=== PATIENT | male | born 1960 | race Caucasian/White ===

== ENCOUNTER 2020-06-13 11:00 | Observation (INO) ==
--- NOTE | 2020-06-13 11:36 | DR.GENAD ---
HPI Time Seen Time Seen by Provider: 06/13/20 11:08 Complaint/Symptoms Chief Complaint Doctors Comments: complaint of lower leg weakness and numbness. Saw neurologist in [facility] and scheduled for follow up next week. Patient with HX of alcohol abuse. Patient here due to not being able to walk. Source History Provided: Patient and Family Member Mode of Arrival Mode of Arrival: Wheelchair Timing Onset of Chief Complaint: 06/06/20 Came on: Gradually Duration Duration: Constant (leg pain x years and progressed to numbness and weakness) How lon Duration: Days Severity Severity: Severe Modifying Factors Worsens:: unknown PMH PMH Past Medical History Comment: alcohol abuse long HX. Social History Alcohol Use: DAILY Do you use any recreational Drugs:: No Lives With: Alone Lives Where: Home ROS Review of Systems Constitutional: Weakness Eyes: No Symptoms Reported ENTM: No Symptoms Reported Respiratoy: No Symptoms Reported Cardiovascular: No Symptoms Reported Genitourinary: No Symptoms Reported Neurological: Numbness (both legs) Musculoskeletal: Leg (pain) Integumentary: No Symptoms Reported Hematologic/Lymphatic: No Symptoms Reported Endocrine: No Symptoms Reported Psychiatric: Depression All Other Systems: Reviewed and Negative PE Vital Signs Vitals: Temperature 97.2 F Pulse Rate 81 Respiratory Rate 33 Blood Pressure 147/95 O2 Sat by Pulse Oximetry 97 COURSE Treatment Treatment: 1130: called Dr. Brian and discussed case, patient has DX. Alcoholic ataxia, 1140: called Dr. Murillo and he has had MRI and CT scan with (mild vascular changes) No acute findings ROR Labs Reviewed Result Diagrams: 06/13/20 12:08 06/13/20 12:08 Laboratory: WBC 18.9 X10^3/uL (3.6-10.0) H 06/13/20 12:08 RBC 4.77 X10^6/uL (4.7-6.0) 06/13/20 12:08 Hgb 15.2 g/dL (13.5-18.0) 06/13/20 12:08 Hct 44.9 % (42.0-54.0) 06/13/20 12:08 MCV 94.1 fL (80.0-100.0) 06/13/20 12:08 MCH 31.9 pg (27.0-34.0) 06/13/20 12:08 MCHC 33.9 g/dL (33.0-35.0) 06/13/20 12:08 RDW 14.5 % (11.6-16.5) 06/13/20 12:08 Plt Count 478 X10^3/uL (150.0-450.0) H 06/13/20 12:08 MPV 7.3 fL (7.4-11.0) L 06/13/20 12:08 Neut % (Auto) 88.6 % (42.0-75.0) H 06/13/20 12:08 Lymph % (Auto) 5.3 % (21.0-51.0) L 06/13/20 12:08 [place] % (Auto) 5.9 % (0.0-13.0) 06/13/20 12:08 Eos % (Auto) 0.0 % (0.9-2.9) L 06/13/20 12:08 Baso % (Auto) 0.2 % (0.2-1.0) 06/13/20 12:08 Neut # (Auto) 16.8 x10^3/uL (2.2-4.8) H 06/13/20 12:08 Lymph # (Auto) 1.0 X10^3/uL (1.3-2.9) L 06/13/20 12:08 [place] # (Auto) 1.1 x10^3/uL (0.3-0.8) H 06/13/20 12:08 Eos # (Auto) 0.0 x10^3/uL (0.0-0.2) 06/13/20 12:08 Baso # (Auto) 0.0 X10^3/uL (0.0-0.1) 06/13/20 12:08 Absolute Nucleated RBC 0.0 /100WBC 06/13/20 12:08 Sodium 136 mmol/L (136-145) 06/13/20 12:08 Corrected Sodium 137 mmol/L (136-145) 06/13/20 12:08 Potassium 4.0 mmol/L (3.5-5.1) 06/13/20 12:08 Chloride 102 mmol/L (98-107) 06/13/20 12:08 Carbon Dioxide 26.5 mmol/L (21-32) 06/13/20 12:08 BUN 28 mg/dL (7-18) H 06/13/20 12:08 Creatinine 1.06 mg/dL (0.70-1.30) 06/13/20 12:08 Est GFR (MDRD) Af Amer > 60 (>60) 06/13/20 12:08 Est GFR (MDRD) Non-Af > 60 (>60) 06/13/20 12:08 Glucose 129 mg/dL (65-99) H 06/13/20 12:08 Calcium 9.1 mg/dL (8.5-10.1) 06/13/20 12:08 Corrected Calcium 9.7 mg/dL (8.5-10.1) 06/13/20 12:08 Iron 106 ug/dL (50-175) 06/13/20 12:08 Transferrin 203 mg/dL (202-364) 06/13/20 12:08 Ferritin 450 ng/mL (26-388) H 06/13/20 12:08 Total Bilirubin 0.40 mg/dL (0.2-1.0) 06/13/20 12:08 AST 14 Units/L (15-37) L 06/13/20 12:08 ALT 39 Units/L (12-78) 06/13/20 12:08 Alkaline Phosphatase 60 Units/L (46-116) 06/13/20 12:08 Creatine Kinase 18 Units/L (39-308) L 06/13/20 12:08 CK-MB (CK-2) < 1.0 ng/mL (0-4.0) 06/13/20 12:08 CK/CKMB % Calc Not Reportable 06/13/20 12:08 Troponin I < 0.02 ng/mL (0-1.5) 06/13/20 12:08 C-Reactive Protein 1.40 mg/L (0-3.0) 06/13/20 12:08 Total Protein 7.7 g/dL (6.4-8.2) 06/13/20 12:08 Albumin 3.2 g/dL (3.4-5.0) L 06/13/20 12:08 Globulin 4.5 g/dL (2.5-4.5) 06/13/20 12:08 Albumin/Globulin Ratio 0.7 Ratio (1.1-2.1) L 06/13/20 12:08 Vitamin B12 704 pg/mL (193-986) 06/13/20 12:08 Vitamin B12 747 pg/mL (193-986) 06/13/20 12:08 Folate 3.3 ng/mL (>8.6) L 06/13/20 12:08 TSH 3rd Generation 2.647 uIU/mL (0.358-3.74) 06/13/20 12:08 RPR Nonreactive (NONREACTIVE) 06/13/20 12:08 Opioid Opioid Risk Tool Total: 0 Total Score Risk Category: Low Risk Copyright: Thanh GILBERT predicting aberrant behaviors Diagnosis Discharge Problem: Ataxia
[2020-06-13 12:50] LABS: BASOPHILS % (AUTO) 0.2 % (0.2-1.0); HEMATOCRIT 44.9 % (42.0-54.0); HEMOGLOBIN 15.2 g/dL (13.5-18.0); LYMPHOCYTES % (AUTO) 5.3 % (21.0-51.0); MEAN CORPUSCULAR HEMOGLOBIN 31.9 pg (27.0-34.0); MEAN CORPUSCULAR HGB CONC 33.9 g/dL (33.0-35.0); MEAN CORPUSCULAR VOLUME 94.1 fL (80.0-100.0); MEAN PLATELET VOLUME 7.3 fL (7.4-11.0); MONOCYTES # (AUTO) 1.1 x10^3/uL (0.3-0.8); MONOCYTES % (AUTO) 5.9 % (0.0-13.0); NEUTROPHILS # (AUTO) 16.8 x10^3/uL (2.2-4.8); NEUTROPHILS % (AUTO) 88.6 % (42.0-75.0); PLATELET COUNT 478 X10^3/uL (150.0-450.0); RED BLOOD COUNT 4.77 X10^6/uL (4.7-6.0); RED CELL DISTRIBUTION WIDTH 14.5 % (11.6-16.5); WHITE BLOOD COUNT 18.9 X10^3/uL (3.6-10.0)
[2020-06-13 13:03] LABS: ALANINE AMINOTRANSFERASE 39 Units/L (12-78); ALBUMIN 3.2 g/dL (3.4-5.0); ALKALINE PHOSPHATASE 60 Units/L (46-116); ASPARTATE AMINO TRANSFERASE 14 Units/L (15-37); BLOOD UREA NITROGEN 28 mg/dL (7-18); CALCIUM 9.1 mg/dL (8.5-10.1); CARBON DIOXIDE 26.5 mmol/L (21-32); CHLORIDE 102 mmol/L (98-107); COR CA(FOR HYPOALB) 9.7 mg/dL (8.5-10.1); COR NA(FOR HYPERGLY) 137 mmol/L (136-145); CREATININE 1.06 mg/dL (0.70-1.30); SODIUM 136 mmol/L (136-145); TOTAL PROTEIN 7.7 g/dL (6.4-8.2); eGFR NON BLACK RACES > 60 (>60)
[2020-06-13 13:07] LABS: TSH (3RD GENERATION) 2.647 uIU/mL (0.358-3.74)
--- NOTE | 2020-06-13 13:34 | RAD ---
HISTORYPT C/O WEAKNESSSTUDYCHEST, 1 VIEWCOMPARISONNoneFINDINGSHeart size and pulmonary vasculature are normal. Lungs are clear with no infiltrate or significant effusion on either side. Bony thorax is unremarkable.IMPRESSIONNo acute cardiopulmonary abnormality is seen on this examElectronically signed by: MINA HIGUERA (Jun 13, 2020 13:32:53)
[2020-06-13] MEDS ORDERED: VITAMIN B-12 PO SCH (14:00)
[2020-06-13] MEDS ORDERED: NORMODYNE INJ 20 MG VIAL IVP ONE (14:32)
[2020-06-13] MEDS ORDERED: NORMODYNE INJ 20 MG VIAL ONE (14:33)
[2020-06-13 16:36] LABS: CREATINE KINASE 18 Units/L (39-308); CREATINE KINASE MB < 1.0 ng/mL (0-4.0); TROPONIN I < 0.02 ng/mL (0-1.5)
--- NOTE | 2020-06-13 18:27 | CT ---
HISTORYAtaxiaSTUDYCT brain without [id number] axial images of the brain were obtained from the skull base to the vertex [without] administration of IV contrast.Dose reduction techniques including Automated Exposure Control (AEC) and adjustment of mA and kV were utlized.FINDINGS[No acute intraparenchymal hemorrhage or mass can be identified.] [No extra-axial fluid collections are seen.] [No alteration in the attenuation of the brain parenchyma can be identified to suggest acute or subacute ischemic change.] Mild cortical atrophy and small vessel ischemic changes are noted. [The ventricular system is symmetric and nondilated.] [The extracranial structures are grossly unremarkable.]IMPRESSION[No acute intracranial process can be identified.]Electronically signed by: DAMION MONTANO (Jun 13, 2020 18:26:13)
[2020-06-13] MEDS ORDERED: NORVASC TAB 10 MG ONE (20:17)
[2020-06-13] MEDS ORDERED: LOPRESSOR TAB 25 MG ONE (20:17)
[2020-06-13] MEDS: LOPRESSOR TAB 25 MG PO SCH (20:23)
[2020-06-13] MEDS: NORVASC TAB 10 MG PO SCH (20:23)
[2020-06-13 21:12] LABS: CKMB % 5.9 % (<4); CREATINE KINASE 17 Units/L (39-308); CREATINE KINASE MB < 1.0 ng/mL (0-4.0); TROPONIN I < 0.02 ng/mL (0-1.5)
[2020-06-13] MEDS: NEURONTIN CAP 300 MG PO SCH (22:21)
[2020-06-14 00:54] LABS: CKMB % 6.3 % (<4); CREATINE KINASE 16 Units/L (39-308); CREATINE KINASE MB < 1.0 ng/mL (0-4.0); TROPONIN I < 0.02 ng/mL (0-1.5)
[2020-06-14] MEDS ORDERED: TYLENOL 500 MG TAB EXTRA STRENGTH PO ONE (01:42)
[2020-06-14] MEDS: TYLENOL 500 MG TAB EXTRA STRENGTH PO PRN ×2 (01:46→16:13)
[2020-06-14 01:55] LABS: BILIRUBIN,URINE NEGATIVE (NEGATIVE); BLOOD/HEMOGLOBIN,URINE 1+ (NEGATIVE); GLUCOSE, URINE 1+ (NEGATIVE); KETONES,URINE NEGATIVE (NEGATIVE); LEUKOCYTE ESTERASE ,URINE 1+ (NEGATIVE); NITRITES,URINE NEGATIVE (NEGATIVE); PROTEIN,URINE NEGATIVE (NEGATIVE); UROBILINOGEN,URINE NORMAL (NORMAL)
[2020-06-14 02:04] LABS: APPEARANCE,URINE CLEAR (CLEAR); BACTERIA,URINE NEGATIVE /HPF (NEGATIVE); CALCIUM OXALATE CRYSTALS,UR NUMEROUS /HPF (NEGATIVE); COLOR,URINE YELLOW (YELLOW); RBC,URINE NONE SEEN /HPF (0-3); SQUAMOUS EPITHELIAL CELL,UR RARE /HPF (NEGATIVE)
[2020-06-14] MEDS ORDERED: KAOPECTATE (NEW FORMULA) PO PRN (02:32)
[2020-06-14] MEDS ORDERED: MILK OF MAGNESIA PO PRN (02:32)
[2020-06-14] MEDS ORDERED: MAALOX or MYLANTA PO PRN (02:32)
[2020-06-14] MEDS ORDERED: PHENOBARBITAL SODIUM INJ 65 MG VIAL IM PRN (02:32)
[2020-06-14] MEDS ORDERED: MOTRIN TAB 800 MG PO PRN (02:32)
[2020-06-14] MEDS ORDERED: LIBRIUM PO ONE (02:42)
[2020-06-14] MEDS: LIBRIUM PO PRN ×2 (02:53→23:16)
[2020-06-14] MEDS ORDERED: PHENOBARBITAL TAB 15 MG (16.2MG) PO SCH (03:00)
[2020-06-14] MEDS ORDERED: NS 250 ML IV 250 ML IV ONE (05:17)
[2020-06-14] MEDS: MAGNESIUM SULFATE 1 GRAM/100 mL PREMIX 1 G/100 ML BAG IV SCH ×3 (05:36→21:52)
[2020-06-14 06:07] LABS: ALANINE AMINOTRANSFERASE 39 Units/L (12-78); ALBUMIN 3.1 g/dL (3.4-5.0); ALKALINE PHOSPHATASE 84 Units/L (46-116); ASPARTATE AMINO TRANSFERASE 13 Units/L (15-37); BLOOD UREA NITROGEN 31 mg/dL (7-18); CALCIUM 8.5 mg/dL (8.5-10.1); CARBON DIOXIDE 26.9 mmol/L (21-32); CHLORIDE 105 mmol/L (98-107); CHOL/HDL RATIO 6.5 (0.0-5.0); CHOLESTEROL 202 mg/dL (0-200); COR CA(FOR HYPOALB) 9.2 mg/dL (8.5-10.1); CREATININE 0.83 mg/dL (0.70-1.30); HDL CHOLESTEROL 31 mg/dL (40-60); SODIUM 140 mmol/L (136-145); TOTAL PROTEIN 7.4 g/dL (6.4-8.2); TRIGLYCERIDES 84 mg/dL (0-150); eGFR NON BLACK RACES > 60 (>60)
[2020-06-14 06:24] LABS: BASOPHILS # (AUTO) 0.1 X10^3/uL (0.0-0.1); BASOPHILS % (AUTO) 0.4 % (0.2-1.0); EOSINOPHILS % (AUTO) 0.2 % (0.9-2.9); HEMATOCRIT 43.6 % (42.0-54.0); HEMOGLOBIN 14.7 g/dL (13.5-18.0); LYMPHOCYTES # (AUTO) 1.8 X10^3/uL (1.3-2.9); LYMPHOCYTES % (AUTO) 8.5 % (21.0-51.0); MEAN CORPUSCULAR HEMOGLOBIN 32.1 pg (27.0-34.0); MEAN CORPUSCULAR HGB CONC 33.7 g/dL (33.0-35.0); MEAN CORPUSCULAR VOLUME 95.4 fL (80.0-100.0); MEAN PLATELET VOLUME 7.8 fL (7.4-11.0); MONOCYTES # (AUTO) 1.7 x10^3/uL (0.3-0.8); MONOCYTES % (AUTO) 8.1 % (0.0-13.0); NEUTROPHILS # (AUTO) 17.8 x10^3/uL (2.2-4.8); NEUTROPHILS % (AUTO) 82.8 % (42.0-75.0); PLATELET COUNT 451 X10^3/uL (150.0-450.0); RED BLOOD COUNT 4.57 X10^6/uL (4.7-6.0); RED CELL DISTRIBUTION WIDTH 14.5 % (11.6-16.5); WHITE BLOOD COUNT 21.4 X10^3/uL (3.6-10.0)
[2020-06-14 06:54] LABS: BAND NEUTROPHILS % 3 % (0-10); PLATELET MORPHOLOGY COMMENT NORMAL (NORMAL)
[2020-06-14 08:01] LABS: CRYPTOSPORIDIUM PARVUM ANTIGEN NEGATIVE (NEGATIVE); GIARDIA LAMBLIA ANTIGEN NEGATIVE (NEGATIVE)
[2020-06-14] MEDS ORDERED: THIAMINE HCL INJ IM SCH (09:00)
[2020-06-14] MEDS: COZAAR PO SCH (09:30)
[2020-06-14] MEDS: PHENOBARBITAL TAB 30 MG (32.4MG) PO SCH ×4 (09:30→20:31)
[2020-06-14] MEDS: NEURONTIN CAP 300 MG PO SCH ×2 (09:30→20:31)
[2020-06-14] MEDS: LOPRESSOR TAB 25 MG PO SCH ×2 (09:30→20:30)
[2020-06-14] MEDS: THIAMINE HCL INJ IM SCH (09:30)
[2020-06-14] MEDS: FORTAZ or TAZICEF VIAL INJ 1 G in NS 100 ML IV + SPIKE MINIBAG* 100 ML IV SCH ×3 (11:00→21:25)
--- NOTE | 2020-06-14 12:03 | DR.H&P ---
H&P - History & Physical for Day of: H&P Date: 06/13/20 - Chief Complaint Chief Complaint: LOWER EXTREMITY WEAKNESS, NUMBNESS, TINGLING, INABILITY TO STAND OR WALK - History of Present Illness History of Present Illness: IS A 59 YEAR OLD PATIENT OF OURS WHO PRESENTED TO THE ER WITH COMPLAINTS OF LOWER LEG WEAKNESS AND NUMBNESS. HE WAS RECENTLY HOSPITALIZED AT [facility] FOR SIMILAR SYMPTOMS. HE REPORTS THAT HE WAS ABLE TO WALK UPON DISCHARGE FROM [facility], HOWEVER, HE HAS NOT BEEN ABLE TO WALK OR STAND. HE ALSO REPORTS NUMBNESS AND TINGLING TO THE LOWER EXTREMITIES. INABILITY TO WALK OR STAND STARTED THE MORNING OF PRESENTING TO THE ER, HOWEVER, WEAKNESS AND NUMBNESS STARTED ON 06/06/20. PATIENT DOES HAVE A LONG HISTORY OF ALCOHOL ABUSE, BUT REPORTS THAT HE HAS NOT HAD A DRINK IN THREE WEEKS. A BRAIN CT WAS OBTAINED ON 06/04/20 AND REVEALED: MILD ATROPHY AND MILD CHRONIC MICROISCHEMIC CHANGES SCATTERED IN THE DEEP WHITE MATTER WITH NO ACUTE ABNORMALITY SEEN. A BRAIN MRI WAS OBTAINED AND REVEALED: LIKELY MILD CHRONIC SMALL VESSEL ISCHEMIC CHANGES ARE SEEN WITHOUT EVIDENCE OF ACUTE ABNORMALITY. A SINUS CT WAS OBTAINED AND REVEALED: MILD CHRNONIC ETHMOID AND MAXILLARY SINUSITIS, MILD NASAL SEPTAL DEVIATION TO THE RIGHT. A LIVER ULTRASOUND WAS OBTAINED AND REVEALED: LIVER IS MILDLY ENLARGED IN SIZ AND ECHOGENIC/FATTY IN ECHOTECTURE. CONSISTENT WITH HEPATIC STEATOSIS. NO ASCITES IDENTIFIED. NO DOMINANT LIVER MASS LESIONS SEEN. THE GALLBALDDER IS DISTENDED AND FILLED WITH SLUDGE. HE WAS DISCHARGED HOME FROM [facility] WITH PRESCRIPTIONS FOR A MEDROL DOSEPACK, CLINDAMYCIN 300MG PO Q6H, AND CEPHALEXIN 500MG PO TID FOR TREATMENT OF GROUP A STREP IN THE URINE. ON ARRIVAL TO THE ER, PATIENTS VITALS WERE 97.2-83-17-99%-174/93. LABS WERE OBTAINED. ABNORMAL LAB VALUES INCLUDE THE FOLLOWING: WBC 18.9, PLT COUNT 478, BUN 28, GLUCOSE 129, AST 14, FERRITIN 450, ALBUMIN 3.2, FOLATE 3.3, CREATINE KINASE 18. URINALYSIS REVEALED: WBC 0-2, RBC NONE SEEN, LEUKOCYTES 1+, BACTERIA NEGATIVE, OCCULT BLOOD 1+. STOOL IS POSITIVE FOR OCCULT BLOOD. BLOOD, STOOL, AND URINE CULTURES WERE SET UP. A CHEST XRAY WAS OBTAINED AND REVEALED: Heart size and pulmonary vasculature are normal. Lungs are clear with no infiltrate or significant effusion on either side. Bony thorax is unremarkable. A BRAIN CT WAS OBTAINED AND REVEALED: No acute intraparenchymal hemorrhage or mass can be identified. No extra-axial fluid collections are seen. No alteration in the attenuation of the brain parenchyma can be identified to suggest acute or subacute ischemic change. Mild cortical atrophy and small vessel ischemic changes are noted. The ventricular system is symmetric and nondilated. The extracranial structures are grossly unremarkable. EKG REVEALED: SINUS RHYTHM WITH HR 80. THE ER PHYSICIAN SPOKE WITH , NEUROLOGIST, WHO FOLLOWED PATIENT WHILE HE WAS PREVIOUSLY HOSPITALIZED. 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 HE WAS ADMITTED TO THE HOSPITAL FO R FURTHER EVALUATION AND TREATMENT OF ATAXIA AND LEUKOCYTOSIS. HE WAS STARTED ON FORTAZ 1G IV Q8H, LEVAQUIN 750MG IV DAILY, COZAAR 100MG PO DAILY, NORVASC 10MG PO HS, LIBRIUM 25MG PO Q6H PRN, NEURONTIN 300MG PO BID, MOTRIN 800MG PO Q8H PRN, LOPRESSOR 25 MG PO BID, THIAMIN 100MG IM DAILY, PHENOBARBITAL 30 MG PO QID, AND MAGNESIUM 1G IV Q8H. WE WILL OBTAIN A LUMBAR SPINE MRI. OTHERWISE, WE PLAN TO F OLLOW UP WITH AM LABS AND CONTINUE TO MONITOR. - Past Medical History Past Medical History: Hypertension Additional Medical History: ALCOHOL ABUSE, RECENTLY QUIT - Past Surgical History Surgical History: No History - Social History Does patient currently use any type of tobacco product: No Have you used tobacco products in the last 12 months: No Type of Tobacco Use: None Does any household member use tobacco: No Alcohol Use: DAILY Drug Use: None - Medications Home Medications: No Known Drug Allergies Allergy (Verified 06/13/20 11:16) CONTINUE taking the following medications amlodipine 10 mg PO HS 06/13/20 [History] cephalexin 500 mg PO TID 06/13/20 [History] clindamycin HCl 300 mg PO Q6H 06/13/20 [History] gabapentin 300 mg PO BID 06/13/20 [History] losartan 100 mg PO DAILY 06/13/20 [History] metoprolol tartrate 25 mg PO BID 06/13/20 [History] prednisone 10 mg PO DIRECTED 06/13/20 [History] - Review of Systems Constitutional: Weakness Eyes: No Symptoms Reported ENT: No Symptoms Reported Respiratory: No Symptoms Reported Cardiovascular: No Symptoms Reported Gastrointestinal: Diarrhea Genitourinary: No Symptoms Reported Musculoskeletal: No Symptoms Reported Skin: No Symptoms Reported Neurological: See HPI, Weakness, Numbness - Physical Exam Vital Signs: Temperature 98.7 F Pulse Rate [Left Brachial] 67 Pulse Rate 90 Respiratory Rate 22 Blood Pressure [Left Arm] 160/85 Blood Pressure 187/92 O2 Sat by Pulse Oximetry 99 Oriented: Normal Eyes: Normal Ear: Normal Nose: Normal Throat: Normal Respiratory: Diminished Throughout Cardiovascular: Normal : Normal Auscultation: Bowel Sounds: Normal Palpation: Normal Tenderness: Normal Skin: Normal Musculoskeletal: Right, Left, Leg, Motor Deficit Psychiatric: Normal Mood Description: Calm Affect: Normal Speech Pattern: Clear - Assessment/Plan (1) Ataxia Status: Acute Plan: ADMIT, FORTAZ 1G IV Q8H, LEVAQUIN 750MG IV DAILY, COZAAR 100MG PO DAILY, NORVASC 10MG PO HS, LIBRIUM 25MG PO Q6H PRN, NEURONTIN 300MG PO BID, MOTRIN 800MG PO Q8H PRN, LOPRESSOR 25 MG PO BID, THIAMIN 100MG IM DAILY, PHENOBARBITAL 30 MG PO QID, AND MAGNESIUM 1G IV Q8H. (2) Leukocytosis Qualifiers: Leukocytosis type: unspecified Qualified Code(s): D72.829 - Elevated white blood cell count, unspecified Status: Acute (3) Hypertension Qualifiers: Hypertension type: essential hypertension Qualified Code(s): I10 - Essential (primary) hypertension Status: Chronic (4) Alcoholism Status: Chronic - Allergies Allergies/Adverse Reactions: Allergies Allergy/AdvReac Type Severity Reaction Status Date / Time No Known Drug Allergies Allergy Verified 06/13/20 11:16
[2020-06-14] MEDS: LEVAQUIN PREMIX IV 750 MG 750 MG/150 ML BAG IV SCH (12:13)
[2020-06-14] MEDS: NORVASC TAB 10 MG PO SCH (20:31)
[2020-06-15] MEDS: FORTAZ or TAZICEF VIAL INJ 1 G in NS 100 ML IV + SPIKE MINIBAG* 100 ML IV SCH ×3 (05:20→21:55)
[2020-06-15] MEDS: TYLENOL 500 MG TAB EXTRA STRENGTH PO PRN (06:11)
[2020-06-15 06:18] LABS: BASOPHILS # (AUTO) 0.1 X10^3/uL (0.0-0.1); BASOPHILS % (AUTO) 0.5 % (0.2-1.0); EOSINOPHILS # (AUTO) 0.1 x10^3/uL (0.0-0.2); EOSINOPHILS % (AUTO) 0.4 % (0.9-2.9); HEMATOCRIT 42.9 % (42.0-54.0); HEMOGLOBIN 14.4 g/dL (13.5-18.0); LYMPHOCYTES # (AUTO) 1.8 X10^3/uL (1.3-2.9); LYMPHOCYTES % (AUTO) 10.9 % (21.0-51.0); MEAN CORPUSCULAR HEMOGLOBIN 31.5 pg (27.0-34.0); MEAN CORPUSCULAR HGB CONC 33.6 g/dL (33.0-35.0); MEAN CORPUSCULAR VOLUME 93.9 fL (80.0-100.0); MEAN PLATELET VOLUME 7.1 fL (7.4-11.0); MONOCYTES # (AUTO) 1.2 x10^3/uL (0.3-0.8); NEUTROPHILS # (AUTO) 13.6 x10^3/uL (2.2-4.8); NEUTROPHILS % (AUTO) 81.2 % (42.0-75.0); PLATELET COUNT 430 X10^3/uL (150.0-450.0); RED BLOOD COUNT 4.57 X10^6/uL (4.7-6.0); RED CELL DISTRIBUTION WIDTH 14.3 % (11.6-16.5); WHITE BLOOD COUNT 16.7 X10^3/uL (3.6-10.0)
[2020-06-15] MEDS: MAGNESIUM SULFATE 1 GRAM/100 mL PREMIX 1 G/100 ML BAG IV SCH ×3 (06:22→21:55)
[2020-06-15 06:37] LABS: ALANINE AMINOTRANSFERASE 37 Units/L (12-78); ALBUMIN 2.8 g/dL (3.4-5.0); ALKALINE PHOSPHATASE 62 Units/L (46-116); ASPARTATE AMINO TRANSFERASE 19 Units/L (15-37); BLOOD UREA NITROGEN 24 mg/dL (7-18); CALCIUM 8.5 mg/dL (8.5-10.1); CHLORIDE 104 mmol/L (98-107); COR CA(FOR HYPOALB) 9.5 mg/dL (8.5-10.1); CREATININE 0.81 mg/dL (0.70-1.30); MAGNESIUM 2.7 mg/dL (1.7-2.9); SODIUM 138 mmol/L (136-145); eGFR NON BLACK RACES > 60 (>60)
[2020-06-15 07:07] LABS: BAND NEUTROPHILS % 3 % (0-10); PLATELET MORPHOLOGY COMMENT NORMAL (NORMAL)
[2020-06-15] MEDS: PHENOBARBITAL TAB 30 MG (32.4MG) PO SCH ×4 (09:00→21:55)
[2020-06-15] MEDS: LOPRESSOR TAB 25 MG PO SCH ×2 (09:00→21:54)
[2020-06-15] MEDS: THIAMINE HCL INJ IM SCH (09:00)
[2020-06-15] MEDS: NEURONTIN CAP 300 MG PO SCH ×2 (09:00→21:55)
[2020-06-15] MEDS: COZAAR PO SCH (09:00)
[2020-06-15] MEDS: LEVAQUIN PREMIX IV 750 MG 750 MG/150 ML BAG IV SCH (09:00)
[2020-06-15] MEDS: FOLIC ACID TAB 1 MG PO SCH (13:30)
[2020-06-15] MEDS ORDERED: NS 250 ML IV 250 ML IV ONE (13:41)
--- NOTE | 2020-06-15 14:27 | MRI ---
Exam:MRI L SPINE W/O CONTRASTIndication: LOWER EXTREMITY WEAKNESS, LOWER BACK PAINComparison: [None available]Technique:Multiplanar, multisequence imaging of the lumbar spine without IV contrast administration.Findings:[Lumbar spine alignment is maintained. No vertebral body height loss or localizing/pathologic marrow signal abnormality within lumbar spine. No significant disc desiccation or disc space loss within the lumbar spine. No prevertebral paraspinal soft tissue swelling or fluid collection. Increased fluid within the right L4-5 and L5-S1 facet joints. Conus has a normal termination. No acute inflammatory process within the visualized abdomen or pelvis.]At T12-L1 mild broad-based right paracentral disc protrusion causes mild spinal canal stenosis and right lateral recess compression. No significant neural foraminal stenosis.At L1-2 mild right paracentral disc protrusion causes mild right lateral recess compression and spinal canal stenosis. Mild right and no significant left-sided neural foraminal stenosis.At L2-3 unremarkableAt L3-4 broad-based disc bulge and right greater than left facet arthropathy causes very mild spinal canal stenosis with moderate right and mild left-sided neural foraminal stenosis.At L4-5 broad-based disc bulge and moderate facet arthropathy causes mild spinal canal stenosis with [id number] right and moderate left-sided neural foraminal stenosis.At L5-S1 broad-based disc bulge and facet arthropathy causes no significant spinal canal stenosis with mild bilateral neural foraminal stenosis.IMPRESSIONMultilevel discogenic degenerative change and facet arthropathy causing varying degrees of spinal canal and neural foraminal stenosis as described above.Electronically signed by: MIGUELINA ORANTES (Jun 15, 2020 14:25:57)
[2020-06-15] MEDS: LIBRIUM PO PRN (14:40)
[2020-06-15] MEDS: NORVASC TAB 10 MG PO SCH (21:55)
[2020-06-16] MEDS: LIBRIUM PO PRN (01:55)
[2020-06-16] MEDS: TYLENOL 500 MG TAB EXTRA STRENGTH PO PRN (01:56)
[2020-06-16] MEDS: FORTAZ or TAZICEF VIAL INJ 1 G in NS 100 ML IV + SPIKE MINIBAG* 100 ML IV SCH ×2 (06:05→15:03)
[2020-06-16 06:31] LABS: BASOPHILS # (AUTO) 0.1 X10^3/uL (0.0-0.1); BASOPHILS % (AUTO) 0.7 % (0.2-1.0); EOSINOPHILS # (AUTO) 0.1 x10^3/uL (0.0-0.2); EOSINOPHILS % (AUTO) 0.6 % (0.9-2.9); HEMATOCRIT 43.9 % (42.0-54.0); HEMOGLOBIN 14.7 g/dL (13.5-18.0); LYMPHOCYTES # (AUTO) 1.9 X10^3/uL (1.3-2.9); LYMPHOCYTES % (AUTO) 10.1 % (21.0-51.0); MEAN CORPUSCULAR HEMOGLOBIN 31.6 pg (27.0-34.0); MEAN CORPUSCULAR HGB CONC 33.4 g/dL (33.0-35.0); MEAN CORPUSCULAR VOLUME 94.8 fL (80.0-100.0); MEAN PLATELET VOLUME 7.3 fL (7.4-11.0); MONOCYTES # (AUTO) 1.1 x10^3/uL (0.3-0.8); MONOCYTES % (AUTO) 5.8 % (0.0-13.0); NEUTROPHILS # (AUTO) 15.2 x10^3/uL (2.2-4.8); NEUTROPHILS % (AUTO) 82.8 % (42.0-75.0); PLATELET COUNT 416 X10^3/uL (150.0-450.0); RED BLOOD COUNT 4.63 X10^6/uL (4.7-6.0); RED CELL DISTRIBUTION WIDTH 14.4 % (11.6-16.5); WHITE BLOOD COUNT 18.4 X10^3/uL (3.6-10.0)
[2020-06-16 06:44] LABS: ALANINE AMINOTRANSFERASE 39 Units/L (12-78); ALKALINE PHOSPHATASE 56 Units/L (46-116); ASPARTATE AMINO TRANSFERASE 14 Units/L (15-37); BLOOD UREA NITROGEN 24 mg/dL (7-18); CALCIUM 8.6 mg/dL (8.5-10.1); CARBON DIOXIDE 27.1 mmol/L (21-32); CHLORIDE 102 mmol/L (98-107); COR CA(FOR HYPOALB) 9.4 mg/dL (8.5-10.1); CREATININE 0.88 mg/dL (0.70-1.30); SODIUM 137 mmol/L (136-145); TOTAL PROTEIN 7.2 g/dL (6.4-8.2); eGFR NON BLACK RACES > 60 (>60)
[2020-06-16 07:35] LABS: BAND NEUTROPHILS % 3 % (0-10); PLATELET MORPHOLOGY COMMENT NORMAL (NORMAL)
[2020-06-16] MEDS ORDERED: NS 500 ML IV 500 ML IV ONE (09:44)
[2020-06-16] MEDS: NEURONTIN CAP 300 MG PO SCH (09:46)
[2020-06-16] MEDS: FOLIC ACID TAB 1 MG PO SCH (09:46)
[2020-06-16] MEDS: COZAAR PO SCH (09:46)
[2020-06-16] MEDS: PHENOBARBITAL TAB 30 MG (32.4MG) PO SCH ×2 (09:47→14:26)
[2020-06-16] MEDS: THIAMINE HCL INJ IM SCH (09:47)
[2020-06-16] MEDS: LOPRESSOR TAB 25 MG PO SCH (09:47)
[2020-06-16] MEDS: LEVAQUIN PREMIX IV 750 MG 750 MG/150 ML BAG IV SCH (09:47)
[2020-06-16 14:28] VITALS: BMI 27.7
[2020-06-16 14:39] VITALS: BP 159/87
--- NOTE | 2020-06-16 15:20 | RAD ---
HISTORYFALL, PAINSTUDYLeft knee x-rays three viewsCOMPARISONNoneFINDINGSThere is no evidence of a joint effusion. There is no acute fractures, no chondrocalcinosis, no significant osteoarthritis.. The joint space is preserved.IMPRESSIONNegative examElectronically signed by: Catherine Cali (Jun 16, 2020 15:18:49)
--- NOTE | 2020-06-16 15:38 | RAD ---
HISTORYFALL, PAINSTUDYRight knee x-rays three viewsCOMPARISONNoneFINDINGSThere is no evidence of a joint effusion. No acute fractures. No significant arthritic changes. There is mild vascular calcifications.IMPRESSIONNegative examElectronically signed by: Catherine Cali (Jun 16, 2020 15:36:38)
[2020-06-17] MEDS ORDERED: PHENOBARBITAL TAB 15 MG (16.2MG) PO SCH (09:00)
== END 2020-06-16 16:40 | disposition home or self-care (01) ==
LOC: MED/SURG 11:00 → ER 11:00 → MED/SURG 14:39
PROVIDERS: ADMIT Internal Medicine; ATTEND Internal Medicine
DX: R20.0 Anesthesia of skin; D72.828 Other elevated white blood cell count; F10.20 Alcohol dependence, uncomplicated; R42 Dizziness and giddiness; R26.89 Other abnormalities of gait and mobility; R26.0 Ataxic gait

== ENCOUNTER 2025-03-13 21:05 | Inpatient (IN) ==
[2025-03-13] MEDS ORDERED: MORPHINE SULFATE INJ 2 MG INJ IVP PRN (22:31)
[2025-03-13] MEDS ORDERED: ZOFRAN INJ 4 MG VIAL IVP PRN (22:31)
[2025-03-13] MEDS: D5 1/2 NS 1,000 ML 1,000 ML IV SCH (22:47)
[2025-03-13] MEDS: PROTONIX INJ 40 MG VIAL IVP SCH (23:06)
[2025-03-13] MEDS: LEVAQUIN PREMIX IV 500 MG 500 MG/100 ML BAG IV ONE (23:06)
[2025-03-13 23:48] VITALS: BMI 27.0
[2025-03-14 03:39] VITALS: RESP 20
[2025-03-14] MEDS: LEVAQUIN PREMIX IV 500 MG 500 MG/100 ML BAG IV SCH (07:05)
[2025-03-14 07:06] LABS: CREATININE 1.16 mg/dL (0.70-1.30); MEAN PLATELET VOLUME 8.9 fL (7.4-11.0); RED CELL DISTRIBUTION WIDTH 13.9 % (11.6-16.5); eGFR NON BLACK RACES > 60 (>60)
[2025-03-14 08:16] VITALS: BP 159/84; PULSE 55; TEMP 98.5; O2SAT 95
--- NOTE | 2025-03-14 09:58 | DR.PROGNOT ---
HOSPITAL PROGRESS NOTE Progress Note for Day of: Progress Note Date: 03/14/25 Chief Complaint Chief Complaint: alert and confused to time and place . no abdominal pain , no nausea or vomiting . WBC 9.6 . Lipase 163. Amylase 156 .. normal LFT and renal tests . Temp 98.5 . stable VS . soft , flat abdomen ..BS+ Past Medical Family Social History Allergies: Allergies No Known Drug Allergies Allergy (Verified 06/13/20 11:16) Vital Signs Vital Signs: Vital Signs Temperature 98.5 F Temperature 98.2 F Pulse Rate [Right] 55 Pulse Rate [Right] 50 Respiratory Rate 20 Respiratory Rate 20 Blood Pressure [Left Arm] 159/84 Blood Pressure [Left Arm] 153/78 O2 Sat by Pulse Oximetry 95 O2 Sat by Pulse Oximetry 98 Physical Exam Oriented: Normal Eyes: Normal Ear: Normal Nose: Normal Throat: Normal Respiratory: Normal Cardiovascular: Normal GI:Auscultation: Normal GI:Palpation: Normal GI: Tenderness: Diffuse Speech Pattern: Clear and Appropriate Laboratory and Diagnostics 03/14/25 06:03 03/14/25 06:03 Labs: Laboratory WBC 9.6 X10^3/uL (3.6-10.0) 03/14/25 06:03 RBC 5.37 X10^6/uL (4.7-6.0) 03/14/25 06:03 Hgb 15.5 g/dL (13.5-18.0) 03/14/25 06:03 Hct 46.2 % (42.0-54.0) 03/14/25 06:03 MCV 86.1 fL (80.0-100.0) 03/14/25 06:03 MCH 28.9 pg (27.0-34.0) 03/14/25 06:03 MCHC 33.5 g/dL (33.0-35.0) 03/14/25 06:03 RDW 13.9 % (11.6-16.5) 03/14/25 06:03 Plt Count 261 X10^3/uL (150.0-450.0) 03/14/25 06:03 MPV 8.9 fL (7.4-11.0) 03/14/25 06:03 Neut % (Auto) 64.4 % (42.0-75.0) 03/14/25 06:03 Lymph % (Auto) 25.4 % (21.0-51.0) 03/14/25 06:03 [place] % (Auto) 7.6 % (0.0-13.0) 03/14/25 06:03 Eos % (Auto) 2.2 % (0.9-2.9) 03/14/25 06:03 Baso % (Auto) 0.4 % (0.2-1.0) 03/14/25 06:03 Neut # (Auto) 6.2 x10^3/uL (2.2-4.8) H 03/14/25 06:03 Lymph # (Auto) 2.4 X10^3/uL (1.3-2.9) 03/14/25 06:03 [place] # (Auto) 0.7 x10^3/uL (0.3-0.8) 03/14/25 06:03 Eos # (Auto) 0.2 x10^3/uL (0.0-0.2) 03/14/25 06:03 Baso # (Auto) 0.0 X10^3/uL (0.0-0.1) 03/14/25 06:03 Absolute Nucleated RBC 0.1 /100WBC 03/14/25 06:03 Sodium 141 mmol/L (136-145) 03/14/25 06:03 Corrected Sodium TNP 03/14/25 06:03 Potassium 4.0 mmol/L (3.5-5.1) 03/14/25 06:03 Chloride 102 mmol/L (98-107) 03/14/25 06:03 Carbon Dioxide 32.9 mmol/L (21-32) H 03/14/25 06:03 BUN 10 mg/dL (7-18) 03/14/25 06:03 Creatinine 1.16 mg/dL (0.70-1.30) 03/14/25 06:03 Est GFR (MDRD) Af Amer > 60 (>60) 03/14/25 06:03 Est GFR (MDRD) Non-Af > 60 (>60) 03/14/25 06:03 Glucose 96 mg/dL (65-99) 03/14/25 06:03 Calcium 8.4 mg/dL (8.5-10.1) L 03/14/25 06:03 Corrected Calcium TNP 03/14/25 06:03 Total Bilirubin 0.90 mg/dL (0.2-1.0) 03/14/25 06:03 AST 32 Units/L (15-37) 03/14/25 06:03 ALT 47 Units/L (12-78) 03/14/25 06:03 Alkaline Phosphatase 97 Units/L (46-116) 03/14/25 06:03 Total Protein 7.4 g/dL (6.4-8.2) 03/14/25 06:03 Albumin 3.6 g/dL (3.4-5.0) 03/14/25 06:03 Globulin 3.8 g/dL (2.5-4.5) 03/14/25 06:03 Albumin/Globulin Ratio 0.9 Ratio (1.1-2.1) L 03/14/25 06:03 Amylase 156 Units/L (25-115) H 03/14/25 06:03 Lipase 163 Units/L (16-77) H 03/14/25 06:03 Assessment and Plan 1: subsiding acute pancreatitis . same plan 2: alcohol abuse . to follow with his PCP 3: gallstones . no surgery now .
[2025-03-14] MEDS ORDERED: LEVAQUIN PREMIX IV 500 MG 500 MG/100 ML BAG IV SCH (21:00)
== END 2025-03-14 11:35 | disposition home or self-care (01) | DRG 439 ==
LOC: MED/SURG 22:00
PROVIDERS: ADMIT Surgery; ATTEND Surgery
DX: R10.84 Generalized abdominal pain; N39.0 Urinary tract infection, site not specified; F10.20 Alcohol dependence, uncomplicated; I10 Essential (primary) hypertension; K76.0 Fatty (change of) liver, not elsewhere classified; F10.27 Alcohol dependence with alcohol-induced persisting dementia; K80.12 Calculus of gallbladder with acute and chronic cholecystitis without obstruction; K85.20 Alcohol induced acute pancreatitis without necrosis or infection; Z74.1 Need for assistance with personal care; Z59.86 Financial insecurity